=== PATIENT | female | born 1985 | race Caucasian/White ===

== ENCOUNTER 2016-05-06 16:13 | Inpatient (IN) | payer MEDICAID, OTHER ==
[~2016-05-06] VITALS: Ht 165.1 cm; Wt 56.7 kg
[~2016-05-06 16:13] MED LIST: ACID1PAC PO; CIP250 PO; CITA10TA68 PO
[2016-05-06 16:41] LABS: BASOPHILS % (AUTO) 0.2 % (0.0-2.0); EOSINOPHILS % (AUTO) 1.8 % (1.0-6.0); HEMATOCRIT 37.7 % (36-46); HEMOGLOBIN 12.6 g/dL (12.0-16.0); LYMPHOCYTES # (AUTO) 1.8 K/uL (1.0-4.8); LYMPHOCYTES % (AUTO) 12.6 % (22.0-44.0); MEAN CORPUSCULAR HGB CONC 33.3 G/dL (31.0-37.0); MEAN CORPUSCULAR VOLUME 105 fL (80-100); MONOCYTES # (AUTO) 0.6 K/uL (0.1-1.0); NEUTROPHILS # (AUTO) 11.4 K/uL (1.8-7.7); NEUTROPHILS % (AUTO) 81.4 % (40.0-70.0); PLATELET COUNT (AUTO) 280 K/uL (150-450); RED CELL DISTRIBUTION WIDTH 13.1 % (11.5-14.5)
[2016-05-06 16:58] LABS: ANION GAP 5 mmol/L (8-16); CALCIUM, TOTAL 8.5 mg/dL (8.8-10.5); CARBON DIOXIDE 30 mmol/L (22-29); CHLORIDE 101 mmol/L (98-107); CREATININE 0.63 mg/dL (0.60-1.30); GLOMERULAR FILTR. RATE CALC > 60 mL/min (>60); POTASSIUM 3.8 mmol/L (3.5-5.1); SODIUM SERUM 136 mmol/L (136-145); UREA NITROGEN, BLOOD 12 mg/dL (7-18)
[2016-05-06 17:04] LABS: ALANINE AMINOTRANSFERASE 21 U/L (12-78); ALBUMIN 3.1 g/dL (3.4-5.0); ASPARTATE AMINOTRANSFERASE 17 U/L (15-37); BILIRUBIN,TOTAL 0.1 mg/dL (0.1-1.0); TOTAL PROTEIN, SERUM 6.9 g/dL (6.4-8.2)
[2016-05-06 17:06] LABS: RBC MORPHOLOGY COMMENT ABNORMAL RBC MORPH
[2016-05-06] MEDS ORDERED: ACETAMINOPHEN 500 MG TABLET PO ONE (19:00)
[2016-05-06] MEDS ORDERED: ZOLPIDEM TARTRATE 10 MG TABLET PO PRN (20:00)
[2016-05-06] MEDS ORDERED: LORazepam 2 MG/ML VIAL IM ONE (20:15)
[2016-05-06] MEDS ORDERED: HALOPERIDOL LACTATE 5 MG/ML VIAL IM ONE (20:15)
[2016-05-06] MEDS ORDERED: DiphenhydrAMINE HCL 50 MG/ML VIAL IM ONE (20:15)
[2016-05-06 21:05] VITALS: BP 98/59
[2016-05-06] MEDS ORDERED: ACETAMINOPHEN 325 MG TABLET PO PRN (21:45)
[2016-05-06] MEDS ORDERED: IBUPROFEN 600 MG TABLET PO PRN (21:45)
[2016-05-07] MEDS ORDERED: INFLUENZA VIRUS VACCINE QVS 2016-17 (3YR+)/PF 60 MCG/0.5 ML SYRINGE IM ONE (02:30)
[2016-05-07 06:35] VITALS: BP 107/60
[2016-05-07] MEDS: BACITRACIN 28.4 GM OINTMENT TP SCH ×3 (08:33→16:34)
[2016-05-07 08:51] VITALS: BP 104/71
[2016-05-07] MEDS: FLUoxetine HCL 20 MG CAPSULE PO SCH (12:28)
[2016-05-07 16:19] VITALS: BP 109/67
[2016-05-07] MEDS: LORazepam 2 MG TABLET PO PRN (17:12)
[2016-05-07 18:00] VITALS: BP 108/70
[2016-05-07] MEDS: ACETAMINOPHEN 325 MG TABLET PO PRN (18:04)
[2016-05-07] MEDS: IBUPROFEN 400 MG TABLET PO PRN (23:52)
[2016-05-07 23:53] VITALS: BP 110/60
[2016-05-08 05:05] VITALS: BP 105/63
[2016-05-08] MEDS: ACETAMINOPHEN 325 MG TABLET PO PRN (05:10)
[2016-05-08 08:42] VITALS: BP 102/64
[2016-05-08] MEDS: FLUoxetine HCL 20 MG CAPSULE PO SCH (09:13)
[2016-05-08] MEDS: BACITRACIN 28.4 GM OINTMENT TP SCH ×3 (09:13→16:46)
[2016-05-08] MEDS: LORazepam 2 MG TABLET PO PRN ×2 (09:13→17:38)
[2016-05-08] MEDS: HALOPERIDOL 5 MG TABLET PO PRN (09:13)
[2016-05-08 16:15] VITALS: BP 111/98
[2016-05-08 17:37] VITALS: BP 110/64
[2016-05-08] MEDS: IBUPROFEN 400 MG TABLET PO PRN (17:38)
[2016-05-09 00:15] VITALS: BP 113/73
[2016-05-09] MEDS: HALOPERIDOL 5 MG TABLET PO PRN (00:18)
[2016-05-09] MEDS: LORazepam 2 MG TABLET PO PRN (00:18)
[2016-05-09 08:58] VITALS: BP 100/58
[2016-05-09] MEDS ORDERED: FLUO-191 PO (09:52)
[2016-05-09] MEDS: BACITRACIN 28.4 GM OINTMENT TP SCH (09:58)
[2016-05-09] MEDS: FLUoxetine HCL 20 MG CAPSULE PO SCH (09:58)
== END 2016-05-09 12:15 | disposition home or self-care (01) | DRG 751 ==
LOC: EMS 16:14 → EEVIPCON 16:14 → B3A 20:15
PROVIDERS: ADMIT Psychiatry & Neurology Child & Adolescent Psychiatry; ATTEND Psychiatry & Neurology Child & Adolescent Psychiatry
DX: F33.2 Major depressive disorder, recurrent severe without psychotic features (principal); R45.851 Suicidal ideations; D72.829 Elevated white blood cell count, unspecified; F17.210 Nicotine dependence, cigarettes, uncomplicated; F41.9 Anxiety disorder, unspecified; Z71.6 Tobacco abuse counseling; Z59.0 Homelessness; Z98.890 Other specified postprocedural states
CPT/HCPCS: 87081; 90471; 96372; 99285; 99406; G0480; J1200; J1630; J2060

== ENCOUNTER 2019-07-25 10:53 | Emergency (ER) | payer MEDICAID ==
[~2019-07-25] VITALS: Ht 162.6 cm; Wt 65.9 kg
[2019-07-25 15:53] VITALS: BP 115/81
== END 2019-07-25 16:00 | disposition home or self-care (01) ==
LOC: EMS 11:07
DX: Z03.818 Encounter for observation for suspected exposure to other biological agents ruled out (principal); F32.9 Major depressive disorder, single episode, unspecified; F41.9 Anxiety disorder, unspecified; F17.210 Nicotine dependence, cigarettes, uncomplicated; F19.90 Other psychoactive substance use, unspecified, uncomplicated; Z59.0 Homelessness

== ENCOUNTER 2019-07-28 15:47 | Inpatient (IN) | payer MEDICAID ==
[~2019-07-28] VITALS: Ht 162.6 cm; Wt 62.4 kg
[2019-07-28 17:07] LABS: BASOPHILS % (AUTO) 0.2 % (0.0-2.0); EOSINOPHILS % (AUTO) 1.4 % (1.0-6.0); HEMATOCRIT 42.7 % (36-46); HEMOGLOBIN 14.3 g/dL (12.0-16.0); LYMPHOCYTES % (AUTO) 26.8 % (22.0-44.0); MEAN CORPUSCULAR HEMOGLOBIN 33.8 pg (26.0-34.0); MEAN CORPUSCULAR HGB CONC 33.5 G/dL (31.0-37.0); MEAN CORPUSCULAR VOLUME 101 fL (80-100); MONOCYTES # (AUTO) 0.5 K/uL (0.1-1.0); NEUTROPHILS # (AUTO) 4.7 K/uL (1.8-7.7); NEUTROPHILS % (AUTO) 64.6 % (40.0-70.0); PLATELET COUNT (AUTO) 245 K/uL (150-450); RED BLOOD CELL COUNT(AUTO) 4.23 MIL/uL (4.00-5.20); RED CELL DISTRIBUTION WIDTH 12.9 % (11.5-14.5)
[2019-07-28 17:16] LABS: ANION GAP 5 mmol/L (8-16); CALCIUM, TOTAL 9.1 mg/dL (8.8-10.5); CARBON DIOXIDE 32 mmol/L (22-29); CHLORIDE 104 mmol/L (98-107); CREATININE 0.72 mg/dL (0.60-1.30); GLOMERULAR FILTR. RATE CALC > 60 mL/min (>60); GLUCOSE,RANDOM 109 mg/dL (70-110); POTASSIUM 4.2 mmol/L (3.5-5.1); SODIUM SERUM 141 mmol/L (136-145); UREA NITROGEN, BLOOD 5 mg/dL (7-18)
[2019-07-28 17:25] LABS: AMPHET/METH SCREEN,URINE NEGATIVE (NEGATIVE); BARBITURATE SCREEN, URINE NEGATIVE (NEGATIVE); BENZODIAZEPINES SCREEN,URINE NEGATIVE (NEGATIVE); CANNABINOID SCREEN,URINE NEGATIVE (NEGATIVE); COCAINE SCREEN,URINE NEGATIVE (NEGATIVE); METHADONE SCREEN, URINE NEGATIVE (NEGATIVE); OPIATE SCREEN,URINE NEGATIVE (NEGATIVE)
[2019-07-28 17:27] LABS: ALANINE AMINOTRANSFERASE 27 U/L (12-78); ALBUMIN 3.6 g/dL (3.4-5.0); ALKALINE PHOSPHATASE 60 U/L (46-116); ASPARTATE AMINOTRANSFERASE 17 U/L (15-37); BILIRUBIN,TOTAL 0.3 mg/dL (0.1-1.0); HCG,QUANTITATIVE < 1 mIU/mL (0-6); TOTAL PROTEIN, SERUM 6.9 g/dL (6.4-8.2)
[2019-07-28 17:27] LABS: PHENCYCLIDINE SCREEN,URINE NEGATIVE (NEGATIVE)
[2019-07-28] MEDS ORDERED: ZOLPIDEM TARTRATE 10 MG TABLET PO PRN (20:00)
[2019-07-29 03:09] LABS: CHOLESTEROL 176 mg/dL (131-200); HDL CHOLESTEROL 44 mg/dL (40-60); LDL CHOL (CALC.) 107 mg/dL (0-130); TRIGLYCERIDES 125 mg/dL (15-150)
[2019-07-29] MEDS: LORazepam 2 MG TABLET PO PRN (08:58)
[2019-07-29] MEDS: HALOPERIDOL 5 MG TABLET PO PRN (11:56)
[2019-07-29] MEDS ORDERED: CloNIDine HCL 0.1 MG TABLET PO PRN (16:00)
[2019-07-29] MEDS ORDERED: LOPERAMIDE HCL 2 MG CAPSULE PO PRN (16:00)
[2019-07-29] MEDS ORDERED: ONDANSETRON HCL 4 MG TABLET PO PRN (16:00)
[2019-07-29] MEDS ORDERED: PETROLATUM,WHITE 28 GM JELLY TP PRN (16:00)
[2019-07-29] MEDS ORDERED: MAGNESIUM HYDROXIDE SUSPENSION 30 ML UDCUP PO PRN (16:00)
[2019-07-29] MEDS ORDERED: ALBUTEROL SULFATE HFA 90 MCG/PUFF 8 GM INHALER IH PRN (16:00)
[2019-07-29] MEDS ORDERED: GuaiFENesin/D-METHORPHAN [SUGAR-FREE] 200-20MG/10 ML SYRUP UDCUP PO PRN (16:00)
[2019-07-29] MEDS ORDERED: ACETAMINOPHEN 325 MG TABLET PO PRN (16:00)
[2019-07-29] MEDS ORDERED: DOCUSATE SODIUM 100 MG CAPSULE PO PRN (16:00)
[2019-07-29] MEDS ORDERED: MAG HYDROX/AL HYDROX/SIMETH ES 30 ML SUSPENSION UDCUP PO PRN (16:00)
[2019-07-29] MEDS ORDERED: NICOTINE 14 MG/24 HOUR PATCH TD PRN (16:00)
[2019-07-29 19:47] VITALS: BP 100/62
[2019-07-30 09:33] VITALS: BP 103/57
[2019-07-30] MEDS: BuPROPion HCL XL 150 MG ER TABLET PO SCH (13:14)
[2019-07-30 16:00] VITALS: BP 133/73
[2019-07-30] MEDS: IBUPROFEN 400 MG TABLET PO PRN (16:05)
[2019-07-30] MEDS: LORazepam 2 MG TABLET PO PRN (19:34)
[2019-07-30] MEDS: HALOPERIDOL 5 MG TABLET PO PRN (19:34)
[2019-07-31] MEDS: LORazepam 2 MG TABLET PO PRN (09:20)
[2019-07-31] MEDS: BuPROPion HCL XL 150 MG ER TABLET PO SCH (09:20)
[2019-07-31 09:33] VITALS: BP 100/60
[2019-07-31] MEDS ORDERED: LORATADINE 10 MG TABLET PO PRN (12:15)
[2019-07-31 17:51] VITALS: BP 100/63
[2019-07-31 21:00] VITALS: BP 111/70
[2019-07-31] MEDS: IBUPROFEN 400 MG TABLET PO PRN (21:08)
[2019-07-31 22:08] VITALS: BP 118/74
[2019-08-01 02:42] VITALS: BP 102/57
[2019-08-01] MEDS ORDERED: BACITRACIN 28.4 GM OINTMENT TP SCH (09:00)
[2019-08-01] MEDS: BuPROPion HCL XL 150 MG ER TABLET PO SCH (09:17)
[2019-08-01 10:00] VITALS: BP 99/57
[2019-08-01] MEDS ORDERED: BUPR75 PO (12:59)
[2019-08-01] MEDS ORDERED: BACI28OI8 TP (13:08)
== END 2019-08-01 15:18 | disposition home or self-care (01) | DRG 885 ==
LOC: EMS 15:58 → 3EI 07-29 11:15 → AHU 07-29 11:35 → 3EI 07-29 19:45
PROVIDERS: ADMIT Psychiatry & Neurology Psychiatry; ATTEND Psychiatry & Neurology Psychiatry
DX: F33.2 Major depressive disorder, recurrent severe without psychotic features (principal); F17.210 Nicotine dependence, cigarettes, uncomplicated; F41.9 Anxiety disorder, unspecified; I95.9 Hypotension, unspecified; Z59.0 Homelessness
CPT/HCPCS: 87081; G0480

== ENCOUNTER 2019-08-07 00:21 | Emergency (ER) | payer MEDICAID ==
[~2019-08-07] VITALS: Ht 162.6 cm; Wt 62.7 kg
[~2019-08-07 00:21] MED LIST changes: -ACID1PAC PO; +BACI28OI8 TP; +BUPR75 PO; -CIP250 PO; -CITA10TA68 PO
[2019-08-07 00:25] VITALS: BP 118/42
== END 2019-08-07 01:54 | disposition left against medical advice (07) ==
LOC: EMS 00:21
DX: R45.851 Suicidal ideations (principal); Z53.21 Procedure and treatment not carried out due to patient leaving prior to being seen by health care provider

== ENCOUNTER 2019-11-03 01:57 | Inpatient (IN) | payer MEDICAID, OTHER ==
[~2019-11-03] VITALS: Ht 167.6 cm; Wt 60.7 kg
[~2019-11-03 01:57] MED LIST changes: +BUPR-93 PO; -BUPR75 PO; +OLAN5TAB2 PO
[2019-11-03 03:00] LABS: BASOPHILS % (AUTO) 0.4 % (0.0-2.0); EOSINOPHILS % (AUTO) 0.5 % (1.0-6.0); HEMATOCRIT 35.2 % (36-46); HEMOGLOBIN 12.2 g/dL (12.0-16.0); LYMPHOCYTES # (AUTO) 1.7 K/uL (1.0-4.8); LYMPHOCYTES % (AUTO) 14.1 % (22.0-44.0); MEAN CORPUSCULAR HEMOGLOBIN 34.6 pg (26.0-34.0); MEAN CORPUSCULAR HGB CONC 34.8 G/dL (31.0-37.0); MEAN CORPUSCULAR VOLUME 100 fL (80-100); MONOCYTES # (AUTO) 0.9 K/uL (0.1-1.0); MONOCYTES % (AUTO) 7.7 % (2.0-9.0); NEUTROPHILS # (AUTO) 9.1 K/uL (1.8-7.7); NEUTROPHILS % (AUTO) 77.3 % (40.0-70.0); PLATELET COUNT (AUTO) 185 K/uL (150-450); RED BLOOD CELL COUNT(AUTO) 3.53 MIL/uL (4.00-5.20); RED CELL DISTRIBUTION WIDTH 12.7 % (11.5-14.5)
[2019-11-03 03:09] LABS: ANION GAP 10 mmol/L (8-16); CALCIUM, TOTAL 8.7 mg/dL (8.8-10.5); CARBON DIOXIDE 28 mmol/L (22-29); CHLORIDE 100 mmol/L (98-107); CREATININE 0.79 mg/dL (0.60-1.30); GLOMERULAR FILTR. RATE CALC > 60 mL/min (>60); GLUCOSE,RANDOM 92 mg/dL (70-110); POTASSIUM 3.1 mmol/L (3.5-5.1); SODIUM SERUM 138 mmol/L (136-145); UREA NITROGEN, BLOOD 14 mg/dL (7-18)
[2019-11-03 03:20] LABS: ALANINE AMINOTRANSFERASE 48 U/L (12-78); ALBUMIN 3.7 g/dL (3.4-5.0); ALKALINE PHOSPHATASE 53 U/L (46-116); ASPARTATE AMINOTRANSFERASE 92 U/L (15-37); BILIRUBIN,TOTAL 1.3 mg/dL (0.1-1.0); HCG,QUANTITATIVE 1 mIU/mL (0-6); TOTAL PROTEIN, SERUM 6.6 g/dL (6.4-8.2)
[2019-11-03] MEDS ORDERED: ZOLPIDEM TARTRATE 10 MG TABLET PO PRN (03:45)
[2019-11-03] MEDS ORDERED: LORazepam 2 MG TABLET PO PRN (03:45)
[2019-11-03] MEDS ORDERED: HALOPERIDOL 5 MG TABLET PO PRN (03:45)
[2019-11-03] MEDS ORDERED: POTASSIUM CHLORIDE 20 MEQ ER TABLET PO ONE (03:45)
[2019-11-03 04:55] VITALS: BP 123/71
[2019-11-03] MEDS ORDERED: NICOTINE 14 MG/24 HOUR PATCH TD PRN (05:30)
[2019-11-03] MEDS ORDERED: PETROLATUM,WHITE 28 GM JELLY TP PRN (05:30)
[2019-11-03] MEDS ORDERED: MAG HYDROX/AL HYDROX/SIMETH ES 30 ML SUSPENSION UDCUP PO PRN (05:30)
[2019-11-03] MEDS ORDERED: DOCUSATE SODIUM 100 MG CAPSULE PO PRN (05:30)
[2019-11-03] MEDS ORDERED: LOPERAMIDE HCL 2 MG CAPSULE PO PRN (05:30)
[2019-11-03] MEDS ORDERED: CloNIDine HCL 0.1 MG TABLET PO PRN (05:30)
[2019-11-03] MEDS ORDERED: ONDANSETRON HCL 4 MG TABLET PO PRN (05:30)
[2019-11-03] MEDS ORDERED: ACETAMINOPHEN 325 MG TABLET PO PRN (05:30)
[2019-11-03] MEDS ORDERED: IBUPROFEN 400 MG TABLET PO PRN (05:30)
[2019-11-03] MEDS ORDERED: MAGNESIUM HYDROXIDE SUSPENSION 30 ML UDCUP PO PRN (05:30)
[2019-11-03] MEDS ORDERED: ALBUTEROL SULFATE HFA 90 MCG/PUFF 8 GM INHALER IH PRN (05:30)
[2019-11-03] MEDS ORDERED: GuaiFENesin/D-METHORPHAN [SUGAR-FREE] 200-20MG/10 ML SYRUP UDCUP PO PRN (05:30)
[2019-11-03 08:00] VITALS: BP 110/66
[2019-11-03 08:56] LABS: APPEARANCE,URINE CLEAR (CLEAR); BILIRUBIN,URINE NEGATIVE (NEGATIVE); GLUCOSE, URINE (UA) NEGATIVE (NEGATIVE); KETONES,URINE >=80 mg/dL (NEGATIVE); LEUKOCYTE ESTERASE ,URINE NEGATIVE (NEGATIVE); NITRATE,URINE NEGATIVE (NEGATIVE); OCCULT BLOOD,URINE NEGATIVE (NEGATIVE); PROTEIN,URINE NEGATIVE (NEGATIVE)
[2019-11-03] MEDS ORDERED: BuPROPion HCL 75 MG TABLET PO SCH (12:30)
[2019-11-03] MEDS: BuPROPion HCL XL 150 MG ER TABLET PO SCH (13:35)
[2019-11-03] MEDS: OLANZapine 5 MG TABLET PO SCH (16:06)
[2019-11-03 16:34] VITALS: BP 145/79
[2019-11-04 06:55] LABS: CHOL/HDL RATIO 3.1 (3.9-5.7)
[2019-11-04 08:29] VITALS: BP 105/66
[2019-11-04] MEDS: OLANZapine 5 MG TABLET PO SCH ×2 (10:17→16:52)
[2019-11-04] MEDS: BuPROPion HCL XL 150 MG ER TABLET PO SCH (10:17)
[2019-11-04 16:00] VITALS: BP 112/70
[2019-11-05 08:00] VITALS: BP 92/56
[2019-11-05] MEDS: BuPROPion HCL XL 150 MG ER TABLET PO SCH (09:18)
[2019-11-05] MEDS: OLANZapine 5 MG TABLET PO SCH ×2 (09:18→16:43)
[2019-11-05 16:20] VITALS: BP 97/54
[2019-11-06 09:06] VITALS: BP 112/62
[2019-11-06] MEDS: OLANZapine 5 MG TABLET PO SCH (09:10)
[2019-11-06] MEDS: BuPROPion HCL XL 150 MG ER TABLET PO SCH (09:10)
== END 2019-11-06 13:19 | disposition home or self-care (01) | DRG 881 ==
LOC: EMS 01:58 → 3EI 03:30
PROVIDERS: ADMIT Psychiatry & Neurology Psychiatry; ATTEND Psychiatry & Neurology Psychiatry
DX: F32.9 Major depressive disorder, single episode, unspecified (principal); R45.851 Suicidal ideations; Z59.0 Homelessness; F17.210 Nicotine dependence, cigarettes, uncomplicated; E87.6 Hypokalemia; F15.10 Other stimulant abuse, uncomplicated; K21.9 Gastro-esophageal reflux disease without esophagitis; D72.829 Elevated white blood cell count, unspecified; F10.10 Alcohol abuse, uncomplicated; Z91.14 Patient's other noncompliance with medication regimen
CPT/HCPCS: 84132; G0480